=== PATIENT | female | born 1995 | race Two or more races ===

== ENCOUNTER → 2017-10-24 | Outpatient (CLI) | payer OTHER ==
[2017-10-25 10:03] LABS: Hepatitis B Surface Antibody Negative
[2017-10-25 10:26] LABS: Hepatitis B Surface Antigen Negative (Negative)
== END | disposition home or self-care (01) ==
LOC: LAB 13:24
DX: Z57.8 Occupational exposure to other risk factors (principal)
CPT/HCPCS: 36415; 86703; 86706; 86803; 87340

== ENCOUNTER → 2017-12-10 | Outpatient (CLI) | payer OTHER | END | disposition home or self-care (01) | LOC: LAB 15:10 | DX: Z57.8 Occupational exposure to other risk factors (principal) | CPT/HCPCS: 36415; 86703; 86803; 87340 ==

== ENCOUNTER 2023-07-06 14:16 | Emergency (ER) | payer MEDICAID, OTHER ==
[~2023-07-06] VITALS: Ht 160 cm; Wt 88.2 kg
[2023-07-06 16:52] VITALS: BP 125/85; PULSE 63; RESP 20; TEMP 98.7; O2SAT 99
== END 2023-07-06 16:56 | disposition home or self-care (01) ==
LOC: ER 14:16
DX: T16.2XXA Foreign body in left ear, initial encounter (principal); H60.92 Unspecified otitis externa, left ear; X58.XXXA Exposure to other specified factors, initial encounter; Y93.89 Activity, other specified; Y92.89 Other specified places as the place of occurrence of the external cause; Y99.8 Other external cause status

== ENCOUNTER 2024-08-26 07:11 | Emergency (ER) | payer MEDICAID ==
[~2024-08-26] VITALS: Ht 160 cm; Wt 90.0 kg
[2024-08-26 07:34] VITALS: BP 111/63; PULSE 99; RESP 16; TEMP 99.4; O2SAT 97
--- NOTE | 2024-08-26 08:08 | DVH ---
XY R SHOULDER 2+ VIEW XRAY INDICATION: FALL TECHNICAL DATA: 3 views were obtained of the right shoulder. COMPARISON: None FINDINGS: There is no fracture or focal bone abnormality. The glenohumeral joint is normally maintained. The ac romioclavicular joint appears normal. The humeral head is not high riding. Adjacent soft tissues are within normal limits. IMPRESSION: No acute fracture or dislocation of the right shoulder.
[2024-08-26] MEDS ORDERED: IBUP1TAB5 PO (08:37)
--- NOTE | 2024-08-26 08:42 | ED.PDOC ---
Musculoskeletal HPI Comments 29 year old female with no past medical history presents to the emergency department with a chief complaint of RT shoulder pain onset 1 day. Patient was playing soccer, tripped,fell and landed on RT shoulder. She noticed pain worsens with movement, currently rates pain mild/moderate but is concerned about a possible fracture. Patient is RT hand dominant. No other symptoms or modifying factors present at this time. Denies fevers chills night sweats nausea vomiting redness around the shoulder Denies previous surgeries to the shoulder or significant injury Numbness/tingling down the arm Denies changes, shortness of breath Denies head injury, LOC Chief Complaint: Upper Extremity Time Seen by MD: 08:30 Reviewed Notes: Nurses Notes, Medications, Allergies Allergies: Coded Allergies: NO KNOWN ALLERGIES (Unverified , 08/26/24) Home Meds Active Scripts Ibuprofen Micronized (Ibuprofen) 600 Mg Tab, 600 MG PO Q8HP PRN for 5 Days, #15 TAB 0 Refills Prov:MARJORIE OLVERA NP 08/26/24 Information Source: Patient Mode of Arrival: Ambulatory Location: Right Extremity Location: Shoulder Timing: Days Prehospital treatment: None Severity: Moderate Able to Move Extremity: Yes Bear Weight: Limited Pain: Moderate Hand Dominance: Right Mechanism: Spontaneous Circumstances: Sporting Onset of Symptoms: After Trauma Symptoms: Pain DVT Risk Factors: NONE Associated signs and symptoms: Shoulder pain (RT) Past Medical History PAST MEDICAL HISTORY: Denies Surgical History: Denies all surgeries SENIOR IT BUSINESS ANALYST History: No Pertinent SENIOR 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 ANALYST History Family History Family History: Reviewed,noncontributory to illness, No family hx of Cancer, No family hx of DM, No family hx of Heart rafa, No family hx of HTN, No family hx ofKidney rafa, No family hx of Liver rafa, No family hx of Lung rafa, No family hx of Stroke Social History Smoker: Non-Smoker Alcohol: Denies ETOH Use Drugs: Denies Drug Use Lives In: Home All Other Systems: Reviewed and Negative (as per HPI) Physical Exam General Appearance: Normal HEENT: Normal ENT Inspection, Pharynx Normal, TMs Normal Neck: Full Range of Motion, Non-Tender, Normal, Normal Inspection Respiratory: Chest Non-Tender, Lungs Clear, No Accessory Muscle Use, No Respiratory Distress, Normal Breath Sounds Cardiovascular: No Edema, No JVD, No Murmur, No Gallop, Normal Peripheral Pulses, Regular Rate/Rhythm Breast Exam: Deferred Gastrointestinal: No Organomegaly, Non Tender, No Pulsatile Mass, Normal Bowel Sounds, Soft Genitalia: Deferred Pelvic: Deferred Rectal: Deferred Extremities: No calf tenderness, Normal capillary refill, No pedal edema Musculoskeletal : Location: Right Extremity Location: Shoulder (RT Shoulder: No gross abnormality on inspection. No shoulder drop visible. No clavicular tenderness on palpation. Palpation tenderness to coracoid process and acromion process. No scapular, supraspinatus, infraspinatus tenderness to touch. Limited flexion passive mov ement due to pain. Pain with abduction. ) Apperance: Normal Neurologic: Alert, sound assistant II-XII nml as Tested, No Motor Deficits, Normal Affect, Normal Mood, No Sensory Deficits Cerebellar Function: Normal Reflexes: Normal Skin: Dry, Normal Color, Warm Lymphatic: No Adenopathy Was a procedure done? Was a procedure done?: No Differential Diagnosis EXT Differential Diagnosis: Fracture, Sprain, Dislocation X-Ray, Labs, Meds, VS Vital Signs Date Time Temp Pulse Resp B/P (MAP) Pulse Ox O2 Delivery O2 Flow Rate FiO2 08/26/24 07:34 99.4 99 16 111/63 (79) 97 99.4 08/26/24 07:34 Room Air* 0 21 08/26/24 07:34 99.4 99 16 111/63 (79) 97 99.4 [place] [id number] Ph: [phone] DIAGNOSTIC IMAGING Diagnostic Imaging Report : [id number] Signed PATIENT: JEIMY VALENZUELA I ACCT: [id number] UNIT: [id number] : 1995 LOC: ER ROOM / BED: / AGE / SEX: 29 / F ADM STATUS: REG ER SERVICE [id number] ORDERING PHYSICIAN: MARJORIE OLVERA NP PROCEDURE(s): RSHD2 - R SHOULDER 2+ VIEW XRAY REASON: FALL ORDER NUMBER(s): [id number], ACCESSION NUMBER(s): [id number] XY R SHOULDER 2+ VIEW XRAY INDICATION: FALL TECHNICAL DATA: 3 views were obtained of the right shoulder. COMPARISON: None FINDINGS: There is no fracture or focal bone abnormality. The glenohumeral joint is no rmally maintained. The acromioclavicular joint appears normal. The humeral head is not high riding. Adjacent soft tissues are within normal limits. IMPRESSION: No acute fracture or dislocation of the right shoulder. ATED BY: FIDENCIO BROOKS MD DICTATED DATE/TIME: 08/26/24805 SIGNED BY: FIDENCIO BROOKS MD SIGNED DATE/TIME: 08/26/24805 CC: X-Ray, Labs, Meds, VS Comment 29 year old female with no past medical history presents to the emergency department with a chief complaint of RT shoulder pain onset 1 day. Patient arrives alert and oriented, ABC's intact, afebrile, vital signs stable, saturating well in room air Diagnostic imaging ordered by me and results interpreted by radiology : R SHOULDER 2+ VIEW XRAY: IMPRESSION: No acute fracture or dislocation of the right shoulder. History and examination consistent of muscular injury X-rays ordered, read by radiologist and reviewed by me Suspect muscle sprain Low likelihood f bony or more serious injury, VSS, pt stable Take IBU w/ food as needed for pain Recommended heat therapy Reviewed RICE management Avoid heavy lifting or strenuous activity Recommended range of motion exercises and limit heavy activity for 1 week If no improvement advised patient to return to the emergency department for follow-up. Discussed possibility of a occult fracture Additional MDM Review of External, Non-ED records: External records reviewed. Discussion with independent historian (EMS, family) history obtained from the patient/parents (if applicable) at bedside Chronic conditions affecting care: None Social determinants of health affecting care: None Consideration of admission (observation or admission): I considered escalation of care to admission for this patient, however given the reassuring workup, the patient is safe for outpatient management. Time of 1ST Reevaluation: 08:30 Reevaluation 1ST: Improved Patient Education/Counseling: Diagnosis, Treatment, Prognosis Family Education/Counseling: No Family Present Departure 1 Departure Time of Disposition: 08:35 Impression: Primary Impression: Shoulder pain, right Qualified Codes: M25.511 - Pain in right shoulder Disposition: 01 HOME / SELF CARE / HOMELESS Condition: Stable e-Prescriptions Ibuprofen Micronized (Ibuprofen) 600 Mg Tab 600 MG PO Q8HP PRN for 5 Days, #15 TAB 0 Refills Prov: MARJORIE OLVERA SURVEILLANCE OPERATOR 08/26/24 Discharged With: Self Critical Care Note Critical Care Time?: No Stability Stability form required: No Heart Score Heart Score: Heart Score Response (Comments) Value History N/A 0 EKG N/A 0 Age N/A 0 Risk Factors N/A 0 Troponin N/A 0 Total 0 I personally scribed for MARJORIE OLVERA NP ([email or web address]) on 08/26/24 at 08:42. Electronically submitted by Benita Suoza ([email or web address]). MARJORIE OLVERA NP Aug 26, 2024 08:42
== END 2024-08-26 08:49 | disposition home or self-care (01) ==
LOC: ER 07:11
DX: M25.511 Pain in right shoulder (principal); W01.0XXA Fall on same level from slipping, tripping and stumbling without subsequent striking against object, initial encounter; Y93.66 Activity, soccer; Y92.89 Other specified places as the place of occurrence of the external cause; Y99.8 Other external cause status
CPT/HCPCS: 73030